=== PATIENT | female | born 1935 | race Caucasian/White ===

== ENCOUNTER 2018-12-14 12:23 | Inpatient (IN) | payer MEDICARE, BC ==
[~2018-12-14] VITALS: Ht 162.6 cm; Wt 69.0 kg
[~2018-12-14 12:23] MED LIST: ACETAMINOPHEN-1 EAC1 PO; LEVAQUIN 500 M500 MG PO; PLAVIX 75 MG TA75 M1 PO; PROAIR HFA8.5 GM INH
[2018-12-14 12:33] VITALS: BP 184/98
[2018-12-14 12:54] LABS: ABSOLUTE EOSINOPHILS 0.3 thou/uL (0.0-0.7); ABSOLUTE LYMPHOCYTES 2.3 thou/uL (0.8-5.3); ABSOLUTE MONOCYTES 0.6 thou/uL (0.0-1.2); ABSOLUTE NEUTROPHILS 4.4 thou/uL (1.6-8.1); BASOPHILS 0.6 %; EOSINOPHILS 3.6 %; HEMATOCRIT 45.1 % (37.0-47.0); HEMOGLOBIN 15.1 gm/dL (12.0-15.0); LYMPHOCYTES 30.1 %; MCH 31.1 pg (26.0-34.0); MCHC 33.4 g/dL (28.0-37.0); MONOCYTES 7.6 %; MPV 7.4 fl. (7.2-11.1); NUCLEATED RBCS 0 /100WBC; PLATELET COUNT* 338 thou/uL (150-400); POLYS 58.1 %; RBC 4.85 mil/uL (4.20-5.00); RDW-CV 13.2 % (10.5-14.5); WBC 7.6 thou/uL (4.0-11.0)
[2018-12-14 12:59] LABS: ANION GAP 7 mmol/L (7-16); BUN 14 mg/dL (7-18); CALCIUM 9.8 mg/dL (8.5-10.1); CHLORIDE 105 mmol/L (98-107); CO2 32 mmol/L (21-32); CREATININE 0.8 mg/dL (0.6-1.3); GLUCOSE 115 mg/dL (70-99); POTASSIUM 3.5 mmol/L (3.5-5.1); SODIUM 144 mmol/L (136-145)
[2018-12-14 13:07] LABS: APTT 27.3 Seconds (25.0-31.3)
[2018-12-14 13:14] LABS: ALBUMIN 3.6 g/dL (3.4-5.0); ALKALINE PHOSPHATASE 95 U/L (46-116); CK-MB MASS 1.1 ng/mL (<0.5-3.6); LIPASE 76 U/L (73-393); NT-PRO BRAIN NAT PEPTIDE 657 pg/mL (<300); SGOT 16 U/L (15-37); SGPT 21 U/L (30-65); TOTAL BILIRUBIN 0.5 mg/dL (<0.1-1.0); TOTAL PROTEIN 7.7 g/dL (6.4-8.2); TROPONIN-I LEVEL <0.06 ng/mL (<0.06)
[2018-12-14 15:40] VITALS: BP 162/62
[2018-12-14 16:00] VITALS: BP 157/69
[2018-12-14] MEDS ORDERED: DAILY MULTIPLE1 EACH PO (16:07)
--- NOTE | 2018-12-14 16:25 | EKG ---
[place] [address] ELECTROCARDIOGRAM REPORT Name: AUDREY CANO Room: [address] ADM IN .R.#: [id number] Admission: 12/14/18 Attend Phys: Rylan Elder MD Discharge: Date of : 39 Report #: [id number] THIS REPORT FOR: //name// 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1935 Requested By: Cesar Smith Order Number: [id number] MD: Brendan Holly Measurements Intervals [place] Rate: 144 P: [place]: QRS: -64 QRSD: 121 T: 100 QT: 277 QTc: 429 Interpretive Statements Atrial fibrillation with rapid ventricular response Left bundle branch block Compared to ECG 09/08/2009 16:47:47 Left bundle-branch block now present Sinus rhythm no longer present Atrial premature complex(es) no longer present First degree AV block no longer present Right superior axis no longer present Myocardial infarct finding no longer present Electronically Signed On 12-14-2018 16:25:51 CDT by Brendan Holly [email or web address] <ELECTRONICALLY SIGNED> By: Brendan Holly MD, FAC 12/14/18 1625 1234 1234 Brendan Holly MD, [facility] /EPI
--- NOTE | 2018-12-14 16:26 | EKG ---
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1935 Requested By: Cesar Smith Order Number: [id number] MD: Brendan Holly Measurements Intervals [place] Rate: 82 P: -9 [place]: 227 QRS: -58 QRSD: 128 T: 83 QT: 415 QTc: 485 Interpretive Statements Sinus rhythm Atrial premature complex Prolonged [place] interval Consider left atrial enlargement Left bundle branch block Compared to ECG 09/08/2009 16:47:47 Left bundle-branch block now present Right superior axis no longer present Myocardial infarct finding no longer present Electronically Signed On 12-14-2018 16:25:58 CDT by Brendan Holly [email or web address] <ELECTRONICALLY SIGNED> By: Brendan Holly MD, FACC 12/14/18 1625 1312 1312 Brendan Holly MD, FACC /EPI
--- NOTE | 2018-12-14 16:45 | 2DMMODE ---
[place] [address] 2 D/M-MODE ECHOCARDIOGRAM Name: AUDREY CANO Room: [address] IN [facility]#: [id number] Admission: 12/14/18 Attend Phys: Rylan Elder, Discharge: Date of : 39 Date of Service: 12/14/18 1645 Report #: [id number] THIS REPORT FOR: //name// APPROVED REPORT Study performed: 12/14/2018 15:02:56 EXAM: Comprehensive 2D, Doppler, and color-flow Echocardiogram Patient Location: In-Patient Room #: er Status: routine BSA: 1.71 HR: 67 bpm BP: 168/85 mmHg Rhythm: NSR Other Information Study Quality: Good Indications Atrial Fibrillation 2D Dimensions IVSd: 12.14 (7-11mm) LVOT Diam: 22.26 (18-24mm) LVDd: 32.81 mm PWd: 11.66 (7-11mm) Ascending Ao: 42.37 (22-36mm) LVDs: 22.88 (25-40mm) Aortic Root: 29.67 mm Volumes Left Atrial Volume (Systole) LA ESV Index: 26.90 mL/m2 Aortic Valve AoV Peak Juan C.: 1.32 m/s AO Peak Gr.: 6.97 mmHg LVOT Max P.32 mmHg AO Mean Gr.: 3.44 mmHg LVOT Mean P.11 mmHg LVOT Max V: 1.04 m/s AO V2 VTI: 22.31 cm LVOT Mean V: 0.66 m/s CHANTAL (VTI): 3.46 cm2 LVOT V1 VTI: 19.81 cm Mitral Valve E/A Ratio: 0.75 MV Decel. Time: 240.35 ms MV E Max Juan C.: 0.66 m/[place] [address] 2 D/M-MODE ECHOCARDIOGRAM Name: AUDREY CANO Room: [address] IN .R.#: [id number] Admission: 12/14/18 Attend Phys: Rylan Elder, Discharge: Date of : 39 Date of Service: 12/14/18 1645 Report #: [id number] MV PHT: 69.70 ms MVA (PHT): 3.16 cm2 TDI E/Lateral E': 9.43 E/Medial E': 13.20 Medial E' Juan C.: 0.05 m/s Lateral E' Juan C.: 0.07 m/s Pulmonary Valve PV Peak Juan C.: 0.97 m/s PV Peak Gr.: 3.73 mmHg Tricuspid Valve RAP Estimate: 5.00 mmHg TR Peak Gr.: 20.01 mmHg RVSP: 25.00 mmHg PA Pressure: 25.00 mmHg Left Ventricle The left ventricle is normal size. There is normal LV segmental wall motion. There is normal left ventricular wall thickness. Left ventricular systolic function is normal. LVEF is 60-65%. Grade I - abnormal relaxation pattern. Right Ventricle The right ventricle is normal size. The right ventricular systolic function is normal. Atria The left atrium size is normal. The right atrium size is normal. Aortic Valve The aortic valve is normal in structure. Trace aortic regurgitation. There is no aortic valvular stenosis. Mitral Valve Mild bileaflet mitral valve prolapse Moderate mitral regurgitation. No evidence of mitral valve stenosis. Tricuspid Valve The tricuspid valve is normal in structure. Trace tricuspid regurgitation. No pulmonary hypertension. Pulmonic Valve The pulmonary valve is normal in structure. [place] [address] 2 D/M-MODE ECHOCARDIOGRAM Name: AUDREY CANO Room: [address] IN [facility]#: [id number] Admission: 12/14/18 Attend Phys: Rylan Elder, Discharge: Date of : 39 Date of Service: 12/14/18 1645 Report #: [id number] Great Vessels The aortic root is normal in size. The ascending aorta is moderately dilated. (4.24 cm) IVC is normal in size and collapses >50% with inspiration. Pericardium There is no pericardial effusion. <Conclusion> The left ventricle is normal size. There is normal left ventricular wall thickness. Left ventricular systolic function is normal. LVEF is 60-65%. Grade I - abnormal relaxation pattern. Trace aortic regurgitation. Mild bileaflet mitral valve prolapse Moderate mitral regurgitation. Trace tricuspid regurgitation. No pulmonary hypertension. Mild pulmonic regurgitation. IVC is normal in size and collapses >50% with inspiration. The ascending aorta is moderately dilated. (4.24 cm) <ELECTRONICALLY SIGNED> By: Brendan Holly MD, FACC 12/14/18 1645 1645 1645 Brendan Holly MD, FACC /INF
--- NOTE | 2018-12-14 17:39 | NUR ---
PT ADMITTED TO ROOM 211 VIA CART FROM ED AT APPROXIMATELY 1600 WITH PNEUMONIA AND AFIB. PT ORIENTED TO ROOM AND CALL LIGHT. ADMISSION ASSESSMENT AND HISTORY COMPLETED. REFER TO CHARTING. PT SCREENED NEGATIVE FOR SEPSIS. MEDICARE AND FALL AGREEMENT FORM SIGNED AND PLACED IN FRONT OF CHART. PT TRACING SR WITH BBB, FIRST DEGREE AND PACS ON THE MATHEMATICAL TECHNICIAN. ON 2L NC SAT UPPER 90'S. PT UP WITH 1 ASSIST AND WALKER TO BATHROOM. WEAKNESS NOTED. SON AND DAUGHTER AT BEDSIDE AND UPDATED ON CURRENT PLAN OF CARE. CARDIOLOGY CONSULT IN PLACE. HOME MEDICATIONS RECONCILED AND RESTARTED. REFER TO EMAR. PT REPOSITIONS SELF. HOURLY ROUNDING OBSERVED. BED IN LOW POSITION. CALL LIGHT WITHIN REACH. WILL CONTINUE PLAN OF CARE.
[2018-12-14 19:30] VITALS: BP 148/62
[2018-12-14 23:49] VITALS: BP 129/51
[2018-12-15 00:59] LABS: ABSOLUTE BASOPHILS 0.1 thou/uL (0.0-0.2); ABSOLUTE EOSINOPHILS 0.3 thou/uL (0.0-0.7); ABSOLUTE LYMPHOCYTES 1.8 thou/uL (0.8-5.3); ABSOLUTE MONOCYTES 0.7 thou/uL (0.0-1.2); ABSOLUTE NEUTROPHILS 3.4 thou/uL (1.6-8.1); EOSINOPHILS 4.8 %; HEMATOCRIT 37.9 % (37.0-47.0); LYMPHOCYTES 29.4 %; MCH 31.5 pg (26.0-34.0); MCHC 33.7 g/dL (28.0-37.0); MCV 93.6 fL (80.0-100.0); MONOCYTES 10.6 %; MPV 7.4 fl. (7.2-11.1); NUCLEATED RBCS 0 /100WBC; PLATELET COUNT* 277 thou/uL (150-400); POLYS 54.2 %; RBC 4.05 mil/uL (4.20-5.00); RDW-CV 13.4 % (10.5-14.5); WBC 6.2 thou/uL (4.0-11.0)
[2018-12-15 01:00] LABS: HEMOGLOBIN 12.8 gm/dL (12.0-15.0)
[2018-12-15 01:16] LABS: CREATININE 0.7 mg/dL (0.6-1.3)
[2018-12-15 04:00] VITALS: BP 136/58
--- NOTE | 2018-12-15 04:32 | NUR ---
ASSUMED CARE OF PT AT 1900. PT IS ALERT AND ORIENTED. VSS. PERRLA. NO COMPLAINTS OF PAIN. PT IS NPO FOR STRESS TEST. PT IS IN SINUS ANDREE ON THE TELEMETRY. PT IS RESTING COMFORTABLY IN BED. RESPIRATIONS ARE ENEN AND NONLABORED. WILL CONTINUE TO MONITOR PT.
[2018-12-15 07:22] LABS: CHOLESTEROL 183 mg/dL (<200); HDL CHOLESTEROL 78 mg/dL (>40); LDL CHOLESTEROL 100 mg/dL (<100); SERUM ASSESSMENT Clear; TC:HDL 2.3 Ratio (Not establshd); TRIGLYCERIDE 29 mg/dL (<150); VLDL 6 mg/dL (<40)
[2018-12-15 08:00] VITALS: BP 176/67
--- NOTE | 2018-12-15 11:39 | NUR ---
Pt out of the room at stress test, will f/u later
[2018-12-15 11:51] VITALS: BP 137/62
--- NOTE | 2018-12-15 14:52 | NUR ---
Pt is A&O. Resides at home with her son and dtr. Independent and active, dtr provides transportation needs. Pt has a walker and cane at home that she can use for mobility. No hx of HH or SNF. Goal is home at pa, no needs anticipated. Following.
[2018-12-15 15:30] VITALS: BP 123/55
--- NOTE | 2018-12-15 16:30 | CARDNUC ---
[place] [address] CARDIAC NUCLEAR IMAGING REPORT Name: AUDREY CANO Room: [address] IN [facility]#: [id number] Admission: 12/14/18 Attend Phys: Rylan Elder, Discharge: Date of : 39 Date of Service: 12/15/18 1630 Report #: [id number] THIS REPORT FOR: //name// APPROVED REPORT Imaging Protocol: Rest Tc-99m/Stress Tc-99m 1 day Study performed: 12/14/2018 14:19:00 Indication: Chest pain Patient Location: In-Patient Stress Tech: Yeimy Rico Stress Nurse: Rima Ernst RN NM Tech:LEANDRO Toscano Ht: 5 ft 3 in Wt: 146 lbs BSA: 1.69 m2 BMI: 25.85 Medical History Medical History: tia, pat, htn Medications: plavix, sotalol Allergies: opiate agonists, meperidine, antihistamine, promethazine Cardiac Risk Factors: age, htn, family hx Exercise History: Sedentary Resting Data Rest SPECT myocardial perfusion imaging was performed in supine position 30 minutes following the intravenous injection of 10.7 mCi of Tc-99m Sestamibi. Time of rest injection: 804 Date: 12/15/2018 The images were gated to evaluate regional wall motion and calculate left ventricular ejection fraction. Administration Route: IV Pharmacologic Stress Pharmacologic stress test was performed by injecting Regadenoson 0.4 mg IV push over 10-15 seconds immediately followed by the intravenous injection of 35.3 mCi of Tc-99m Sestamibi. Time of stress injection: 944 Date: 12/15/2018 Administration Route: IV Gated Stress SPECT was performed 40 minutes after stress injection. The images were gated to evaluate regional wall motion and calculate left ventricular ejection fraction. Stress only was performed [place] [address] CARDIAC NUCLEAR IMAGING REPORT Name: AUDREY CANO Room: [address] IN ..#: [id number] Admission: 12/14/18 Attend Phys: Rylan Elder, Discharge: Date of : 39 Date of Service: 12/15/18 1630 Report #: [id number] Stress Test Details Stress Test: Pharmacologic stress testing performed using 0.4 mg of regadenoson per 5 mL given IV over 10 seconds. Reason for pharmacologic stress test: arthritis. HR Max Heart Rate (APMHR): 139 bpm Resting HR: 57 bpm Target HR (85% APMHR): 118 bpm Max HR Achieved: 80 bpm % of APMHR: 57 BP Resting BP: 149/73 mmHg Max BP: 163/84 mmHg Recovery BP: 166/88 mmHg ECG Resting ECG: Sinus Rhythm, LBBB Stress ECG: Sinus Rhythm, LBBB ST Change: None Arrhythmia: None Recovery ECG: Sinus Rhythm, LBBB Recovery ST Change: None Recovery Arrhythmia: None Clinical Reason for Termination: Completed protocol Exercise duration: 0 min sec Exercise capacity: 1 METs The patient had some chest discomfort with Lexiscan infusion felt to be due to medication effect in light of myocardial perfusion imaging findings. Nurse Comments pt co cp during test resolved with caffeine Stress ECG Conclusion Baseline EKG shows sinus rhythm with left bundle-branch block. EKGs obtained during and post Lexiscan infusion show sinus rhythm with left bundle-branch block. There were no stress-induced arrhythmias. Study Quality Study: Fair Artifact: Moderate Soft tissue [place] [address] CARDIAC NUCLEAR IMAGING REPORT Name: AUDREY CANO Room: [address] IN ..#: [id number] Admission: 12/14/18 Attend Phys: Rylan Elder, Discharge: Date of : 39 Date of Service: 12/15/18 1630 Report #: [id number] At rest, the left ventricular ejection fraction was 70%.. Post stress, the left ventricular ejection was 63%.. TID = 0.97. Perfusion There is moderate attenuation of the inferior wall noted. No significant fixed or reversible defects were identified. Wall Motion Normal left ventricular wall motion. Nuclear Conclusion ECG Findings: non-diagnostic Clinical Findings: equivocal Nuclear Findings: negative for ischemia Exercise Capacity: not assessed Left Ventricular Function: normal Risk Study: low Perfusion images show no defect to suggest infarct or ischemia. Left ventricular systolic function is normal on gated studies. This is a low risk study. <Conclusion> Baseline EKG shows sinus rhythm with left bundle-branch block. EKGs obtained during and post Lexiscan infusion show sinus rhythm with left bundle-branch block. There were no stress-induced arrhythmias. <ELECTRONICALLY SIGNED> By: Brendan Holly MD, FACC 12/15/18 1630 1630 1630 Brendan Holly MD, FACC /INF
--- NOTE | 2018-12-15 17:20 | EKG ---
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1935 Requested By: Brendan Holly Order Number: [id number] Reading MD: Husam Lyle Measurements Intervals [place] Rate: 68 P: -45 TN: 222 QRS: -61 QRSD: 123 T: 64 QT: 448 QTc: 477 Interpretive Statements Sinus or ectopic atrial rhythm Prolonged [place] interval Probable left atrial enlargement Left bundle branch block Baseline wander in lead(s) V4 Compared to ECG 12/14/2018 13:12:31 Atrial premature complex(es) no longer present Electronically Signed On 12-15-2018 17:20:38 CDT by Husam Lyle [email or web address] <ELECTRONICALLY SIGNED> By: Husam Lyle MD, [facility] 12/15/18 1720 1004 1004 Husam Lyle MD, [facility] /EPI
--- NOTE | 2018-12-15 18:52 | NUR ---
ASSUSMED CARE OF PT APPROX 0730. REASSESSMENT COMPLETED CHARTED THIS AM. PT EXPRESSED CONCERN ABOUT PROCEDURE THIS AM. PT EDUCATION GIVEN ABOUT PROCEDURE. PT VERBALIZED UNDERSTANDING. PT EDUCATION GIVEN ABOUT NEW MEDICATION PT IS TAKING. PT VERBALIZED UNDERSTNADING. HOURLY ROUNDING COMPLETED. PERSONAL ITEMS AND CALL LIGHT WITHIN REACH.
[2018-12-15 19:30] VITALS: BP 107/59
--- NOTE | 2018-12-15 19:30 | NUR ---
i have reviewed and agree with the assesment and note of Wanda Robb RN on 12/15/18
[2018-12-16 00:19] VITALS: BP 151/48
[2018-12-16 04:00] VITALS: BP 148/75
[2018-12-16 08:00] VITALS: BP 138/42
[2018-12-16 11:27] VITALS: BP 138/42
[2018-12-16 11:30] VITALS: BP 184/55
[2018-12-16] MEDS ORDERED: ELIQUIS5 MG PO (13:34)
[2018-12-16] MEDS ORDERED: SOTALOL80 MG PO (13:36)
[2018-12-16] MEDS ORDERED: LIPITOR10 MG PO (13:37)
[2018-12-16] MEDS ORDERED: CEFDINIR300 MG PO (13:38)
--- NOTE | 2018-12-16 15:28 | NUR ---
ASSUMED PT CARE AT 0730, FULL ASSESMENT DONE CHARTED. PT A/O X4, DENIES PAIN, VSS, HR IN THE 40'S-50'S, ASYMPTOMATIC. PT STATES HER HR IS NORMALLY LOW. DR JEAN NOTIFIED. DISCHARGE PAPERS RECIEVED, SCRIPTS RECIEVED. REVIEWED THESE WITH THE PT AND HER DAUGHTER. DTR VERBALIZED UNDERSTANDING. PT WILL NEED ASSISTANCE WITH NEW MEDICATIONS, SHE IS CONCERNED ABOUT KEEPING THEM STRAIT, SUGGESTED THE USE OF A DAILY MEDICATION BOX. DAUGHTER STATES SHE WILL HELP. PTS IV REMOVED, BELONGINGS GATHERED AND PT LEFT UNIT BY AT APPROX 1455
--- NOTE | 2018-12-16 16:30 | EKG ---
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1935 Requested By: Brendan Holly Order Number: [id number] Reading MD: Brendan Holly Measurements Intervals [place] Rate: 48 P: 6 [place]: 244 QRS: -58 QRSD: 120 T: 33 QT: 504 QTc: 451 Interpretive Statements Sinus bradycardia Atrial premature complexes Prolonged [place] interval Left bundle-branch block Compared to ECG 12/15/2018 10:04:13 Atrial premature complex(es) now present No significant changes noted Electronically Signed On 12-16-2018 16:30:42 CDT by Brendan Holly [email or web address] <ELECTRONICALLY SIGNED> By: Brendan Holly MD, FACC 12/16/18 1630 Brendan Holly MD, [facility] /EPI
--- NOTE | 2018-12-16 17:02 | CON ---
[address] [address] CONSULTATION Name: AUDREY CANO Room: [address] IN M.R.#: [id number] Admission: 12/14/18 Attend Phys: Rylan Elder MD Discharge: 12/16/18 Date of : 39 Report #: [id number] THIS REPORT FOR: //name// CC: Rylan Falcon DO CARDIOLOGY CONSULTATION INDICATION: Paroxysmal atrial fibrillation. HISTORY OF PRESENT ILLNESS: The patient is a very pleasant 83-year-old white female with no prior cardiac history with the exception of light stroke many years ago for which she takes Plavix. She presented to the hospital this morning after having an episode of prolonged palpitations described as her heart pounding. She was found to be in atrial fibrillation with a rapid ventricular response. She spontaneously converted to sinus rhythm prior to any medications being administered. She reports similar symptoms off and on over the past several months. She has never been formally documented with atrial fibrillation prior. PAST MEDICAL HISTORY: 1. Stroke. 2. Hysterectomy. 3. Thyroidectomy. 4. Hernia surgery. FAMILY HISTORY: The patient's son had atrial fibrillation ablation. SOCIAL HISTORY: The patient does not smoke. She does not drink alcohol. ALLERGIES: DARK CHOCOLATE. MEDICATIONS: Plavix 75 mg daily and a multivitamin daily. REVIEW OF SYSTEMS: A 14-point review of systems is positive for pneumonia 2 years ago, palpitations presently, arthritis and she wears dentures. Otherwise, 14-point review of systems was unremarkable. PHYSICAL EXAMINATION: VITAL SIGNS: Blood pressure 168/85 and pulse 68. GENERAL: This is a pleasant elderly female in no distress. Mood and affect appropriate. HEENT: Extraocular muscles intact. Mucous membranes are moist. NECK: Shows no jugular venous distention. There are no carotid bruits. CHEST: Reveals coarse breath sounds over the left lung. CARDIOVASCULAR: Reveals a regular rhythm with soft grade 2/6 [place] [address] CONSULTATION Name: ENGLISHAUDREY J Room: [address]#: [id number] Admission: 12/14/18 Attend Phys: Rylan Elder MD Discharge: 12/16/18 Date of : 39 Report #: [id number] murmur. ABDOMEN: Reveals normal bowel sounds. The abdomen is soft, nontender. EXTREMITIES: Shows no edema. SKIN: Warm and dry. Peripheral pulses palpable. LABORATORY AND DIAGNOSTIC DATA: EKG on admission shows atrial fibrillation with rapid ventricular response rate and bundle branch block. Labs are reviewed. Sodium 144, potassium 3.5, chloride 105, bicarbonate 32, BUN 14, creatinine 0.8 and serum glucose 115. LFTs within normal limits. Troponin less than 0.06. NT-proBNP 657. Coags within normal limits. White blood cell count 7.6, hemoglobin 15.1 and platelet count 338,000. Chest x-ray shows left basilar infiltrate. There is note of calcification of the thoracic aorta. IMPRESSION AND RECOMMENDATIONS: 1. Paroxysmal atrial fibrillation. The patient's CHADS score is 2. She warrants anticoagulation chronically. She is maintaining sinus rhythm presently. We will start low dose sotalol. 2. Discomforts of the shoulders with episode of atrial fibrillation. We will proceed with stress testing. 3. Atherosclerosis. We will check fasting lipid profile as the patient likely would benefit from a lipid lowering agent. 4. Hypertension. We will adjust medications as needed. <ELECTRONICALLY SIGNED> By: Brendan Holly MD, FACC 12/16/18 1702 1415 [email or web address] Holly MD, FACC /nt
== END 2018-12-16 14:55 | disposition home or self-care (01) | DRG 178 ==
LOC: M.ERS 12:23 → M.TBA-ER 14:03 → M.2W 14:03
PROVIDERS: Emergency Medicine; Internal Medicine Cardiovascular Disease; ADMIT Internal Medicine
DX: J15.6 Pneumonia due to other Gram-negative bacteria (principal); D68.69 Other thrombophilia; I48.0 Paroxysmal atrial fibrillation; E89.0 Postprocedural hypothyroidism; G43.909 Migraine, unspecified, not intractable, without status migrainosus; I70.90 Unspecified atherosclerosis; I10 Essential (primary) hypertension; Z79.899 Other long term (current) drug therapy; Z90.710 Acquired absence of both cervix and uterus; Z86.73 Personal history of transient ischemic attack (TIA), and cerebral infarction without residual deficits; Z88.8 Allergy status to other drugs, medicaments and biological substances; Z79.01 Long term (current) use of anticoagulants

== ENCOUNTER → 2019-01-12 | Outpatient (CLI) | payer MEDICARE, BC ==
[~2019-01-12] MED LIST changes: +CEFDINIR300 MG PO; +DAILY MULTIPLE1 EACH PO; +ELIQUIS5 MG PO; +FLECAINIDE ACET50 M1 PO; +LIPITOR10 MG PO; +LISINOPRIL5 MG PO; +MACROBID 100 M100 M1 PO; +SOTALOL80 MG PO
== END ==
LOC: M.LAB 15:39
DX: I48.0 Paroxysmal atrial fibrillation (principal); Z98.890 Other specified postprocedural states

== ENCOUNTER 2019-01-14 04:45 | Emergency (ER) | payer MEDICARE, BC ==
[~2019-01-14] VITALS: Ht 162.6 cm; Wt 67.1 kg
[~2019-01-14 04:45] MED LIST changes: -FLECAINIDE ACET50 M1 PO; -LISINOPRIL5 MG PO; -MACROBID 100 M100 M1 PO
[2019-01-14] MEDS ORDERED: FLECAINIDE ACET50 M1 PO (05:08)
[2019-01-14] MEDS ORDERED: LISINOPRIL5 MG PO (05:08)
[2019-01-14 05:34] LABS: ABSOLUTE BASOPHILS 0.1 thou/uL (0.0-0.2); ABSOLUTE EOSINOPHILS 0.4 thou/uL (0.0-0.7); ABSOLUTE LYMPHOCYTES 1.7 thou/uL (0.8-5.3); ABSOLUTE MONOCYTES 0.6 thou/uL (0.0-1.2); ABSOLUTE NEUTROPHILS 3.2 thou/uL (1.6-8.1); BASOPHILS 1.2 %; EOSINOPHILS 6.3 %; HEMATOCRIT 42.8 % (37.0-47.0); HEMOGLOBIN 14.1 gm/dL (12.0-15.0); LYMPHOCYTES 29.1 %; MCH 31.3 pg (26.0-34.0); MCHC 32.9 g/dL (28.0-37.0); MONOCYTES 9.5 %; MPV 7.8 fl. (7.2-11.1); NUCLEATED RBCS 0 /100WBC; PLATELET COUNT* 320 thou/uL (150-400); POLYS 53.9 %; RBC 4.51 mil/uL (4.20-5.00); RDW-CV 13.4 % (10.5-14.5); WBC 5.9 thou/uL (4.0-11.0)
[2019-01-14 05:43] LABS: CALCIUM 9.1 mg/dL (8.5-10.1); CREATININE 0.7 mg/dL (0.6-1.3); POTASSIUM 4.3 mmol/L (3.5-5.1)
[2019-01-14 05:46] LABS: APTT 28.2 Seconds (25.0-31.3); PROTIME 10.5 Seconds (9.20-11.50)
[2019-01-14 05:48] LABS: ALBUMIN 3.3 g/dL (3.4-5.0); TOTAL BILIRUBIN 0.4 mg/dL (<0.1-1.0); TOTAL PROTEIN 7.3 g/dL (6.4-8.2)
[2019-01-14 05:54] LABS: URINE BILIRUBIN NEGATIVE (Negative); URINE BLOOD 3+ (Negative); URINE CLARITY CLEAR; URINE COLOR YELLOW; URINE GLUCOSE-RANDOM NEGATIVE (Negative); URINE KETONES NEGATIVE (Negative); URINE LEUKOCYTES-REFLEX 1+ (Negative); URINE NITRITE-REFLEX NEGATIVE (Negative); URINE PROTEIN NEGATIVE (Negative); URINE UROBILINOGEN 0.2 E.U./dl (0.2-1.0)
[2019-01-14 06:03] LABS: BACTERIA-REFLEX 1-9 Few /HPF (None Seen); CASTS None Seen /LPF (None Seen); CRYSTALS None Seen /LPF (None Seen); MUCUS 4-6 Moderate strn/LPF (None Seen); SQUAMOUS 4-10 Moderate /LPF (0-3); URINE RBC 3-10 Few /HPF (0-2); URINE WBC-REFLEX 6-15 Few /HPF (0-5)
[2019-01-14] MEDS ORDERED: MACROBID 100 M100 M1 PO (06:35)
[2019-01-14 06:44] VITALS: BP 168/69
== END 2019-01-14 06:45 | disposition home or self-care (01) ==
LOC: M.ERS 04:45
PROVIDERS: Family Medicine
DX: N39.0 Urinary tract infection, site not specified (principal); I48.91 Unspecified atrial fibrillation; G43.909 Migraine, unspecified, not intractable, without status migrainosus; N81.2 Incomplete uterovaginal prolapse; Z90.89 Acquired absence of other organs; Z90.710 Acquired absence of both cervix and uterus; Z86.73 Personal history of transient ischemic attack (TIA), and cerebral infarction without residual deficits; Z88.8 Allergy status to other drugs, medicaments and biological substances

== ENCOUNTER → 2019-01-26 | Outpatient (CLI) | payer MEDICARE, BC ==
[~2019-01-26] MED LIST changes: +FLECAINIDE ACET50 M1 PO; +LISINOPRIL5 MG PO; +MACROBID 100 M100 M1 PO
[2019-01-26 11:19] LABS: CALCIUM 9.5 mg/dL (8.5-10.1); CREATININE 0.7 mg/dL (0.6-1.3); POTASSIUM 4.7 mmol/L (3.5-5.1)
== END ==
LOC: M.LAB 10:37
PROVIDERS: Nurse Practitioner
DX: I10 Essential (primary) hypertension (principal)